=== PATIENT | female | born 1955 | race Hispanic/Latino ===

== ENCOUNTER 2017-09-10 09:16 | Inpatient (IN) | payer OTHER ==
[~2017-09-10] VITALS: Ht 149.9 cm; Wt 43.5 kg
[2017-09-10 09:55] LABS: BASOPHILS % (AUTO) 0.5 % (0.0-5.0); EOSINOPHILS % (AUTO) 1.3 % (0.0-8.0); HEMATOCRIT 39.2 % (36-48); LYMPHOCYTES % (AUTO) 8.1 % (21.0-51.0); MEAN CORPUSCULAR HEMOGLOBIN 28.9 pg (27.0-33.0); MEAN CORPUSCULAR HGB CONC 33.2 g/dL (32.0-36.0); MEAN CORPUSCULAR VOLUME 87.1 fL (79-99); MONOCYTES % (AUTO) 8.5 % (3.0-13.0); NEUTROPHILS % (AUTO) 81.6 % (40.0-77.0); PLATELET COUNT (AUTO) 350 K/uL (130-400); RED CELL DISTRIBUTION WIDTH 15.7 % (11.0-15.5); WHITE BLOOD COUNT (AUTO) 7.8 K/uL (4.8-10.8)
[2017-09-10 10:10] LABS: INR 0.96 (0.85-1.15); PARTIAL THROMBOPLASTIN TIME 27.1 SEC (26.3-35.5); PROTHROMBIN TIME 10.1 SEC (9.6-11.6)
[2017-09-10 10:11] LABS: AMYLASE 28 U/L (25-115); LIPASE 58 U/L (114-286)
[2017-09-10 10:21] LABS: ALANINE AMINOTRANSFERASE 16 U/L (12-78); ASPARTATE AMINOTRANSFERASE 25 U/L (10-37); BILIRUBIN,TOTAL 1.3 mg/dL (0.2-1.0); CARBON DIOXIDE 31 mmol/L (21-32); CHLORIDE 95 mmol/L (101-111); CREATINE KINASE MB < 0.5 ng/mL (0.5-3.6); CREATINE KINASE, TOTAL 38 U/L (21-232); CREATININE 0.6 mg/dL (0.5-1.5); GLOMERULAR FILTR. RATE CALC 108 mL/min (>60); GLUCOSE,RANDOM 89 mg/dL (70-105); MYOGLOBIN 39 ng/mL (10-92); SODIUM SERUM 138 mmol/L (136-145); TOTAL PROTEIN, SERUM 7.6 g/dL (6.0-8.3); TROPONIN I < 0.04 ng/mL (0.00-0.06); UREA NITROGEN, BLOOD 8 mg/dL (7-18)
[2017-09-10] MEDS ORDERED: POTASSIUM BICARB/CIT AC 25 MEQ TABLET.EFF ONE (10:50)
[2017-09-10 11:46] LABS: APPEARANCE,URINE Cloudy (CLEAR); BILIRUBIN,URINE Moderate (NEGATIVE); COLOR,URINE Dark Yellow (YELLOW); GLUCOSE, URINE (UA) Negative (NEGATIVE); KETONES,URINE >=80 mg/dL (NEGATIVE); LEUKOCYTE ESTERASE ,URINE Trace (NEGATIVE); NITRATE,URINE Negative (NEGATIVE); OCCULT BLOOD,URINE Negative (NEGATIVE); PROTEIN,URINE POS 1+ (NEGATIVE)
[2017-09-10 12:07] LABS: BACTERIA,URINE Moderate /HPF (None Seen)
[2017-09-10] MEDS ORDERED: IOPAMIDOL-370 100 ML VIAL IV ONE (12:07)
[2017-09-10 12:08] LABS: MUCUS,URINE Moderate LPF (None Seen); RBC,URINE 0-1 /HPF (0-1); SQUAMOUS EPITHELIAL CELL,UR 0-2 /LPF (0-2)
[2017-09-10 12:09] LABS: CALCIUM OXALATE CRYSTALS,UR Rare /LPF (None Seen)
[2017-09-10 18:00] VITALS: BP 155/66
[2017-09-10] MEDS ORDERED: HEPARIN SODIUM/PF 100UNIT/ML 5ML SYRINGE IV SCH (18:15)
[2017-09-10] MEDS ORDERED: SODIUM CHLORIDE 0.9% 10 ML VIAL IV PRN (18:15)
[2017-09-10] MEDS ORDERED: METOCLOPRAMIDE 10 MG/2 ML VIAL IVP PRN (18:15)
[2017-09-10] MEDS ORDERED: HYDROCODONE/ACETAMINOPHEN 5/325 MG TAB PO PRN (18:15)
[2017-09-10] MEDS ORDERED: ALBUTEROL SULFATE 0.042% 1.25 MG/3 ML INH IH PRN (18:15)
[2017-09-10] MEDS ORDERED: ONDANSETRON HCL 4 MG/2 ML VIAL IVP PRN (18:15)
[2017-09-10] MEDS ORDERED: SODIUM CHLORIDE 0.9% 1000ML 1,000 ML IV ONE (18:54)
[2017-09-10] MEDS ORDERED: HYDRALAZINE HCL 20 MG/ML VIAL IV PRN (19:30)
[2017-09-10 19:45] VITALS: BP 138/65
[2017-09-10] MEDS ORDERED: ONDA8TAB5 PO (20:37)
[2017-09-10] MEDS ORDERED: MEGE40 PO (20:37)
[2017-09-10] MEDS ORDERED: HYDR-4060 PO (20:37)
[2017-09-10] MEDS: MORPHINE SULFATE 2 MG/ML 1ML SYG IVP PRN (20:46)
[2017-09-11] VITALS (14 sets, daily range): BP systolic 121–149; BP diastolic 66–95
[2017-09-11] MEDS: MORPHINE SULFATE 2 MG/ML 1ML SYG IVP PRN ×4 (00:41→20:59)
[2017-09-11 06:13] LABS: BASOPHILS % (AUTO) 0.5 % (0.0-5.0); EOSINOPHILS % (AUTO) 1.3 % (0.0-8.0); HEMATOCRIT 35.1 % (36-48); LYMPHOCYTES % (AUTO) 7.9 % (21.0-51.0); MEAN CORPUSCULAR HEMOGLOBIN 29.8 pg (27.0-33.0); MEAN CORPUSCULAR HGB CONC 33.7 g/dL (32.0-36.0); MEAN CORPUSCULAR VOLUME 88.4 fL (79-99); MONOCYTES % (AUTO) 12.7 % (3.0-13.0); NEUTROPHILS % (AUTO) 77.6 % (40.0-77.0); PLATELET COUNT (AUTO) 309 K/uL (130-400); RED BLOOD CELL COUNT(AUTO) 3.97 MIL/uL (4.00-5.50); WHITE BLOOD COUNT (AUTO) 8.1 K/uL (4.8-10.8)
[2017-09-11 06:19] LABS: CREATININE 0.5 mg/dL (0.5-1.5); POTASSIUM 3.3 mmol/L (3.5-5.1)
[2017-09-11] MEDS: IPRATROPIUM 0.5 MG/2.5 ML INH IH PRN ×4 (07:15→23:08)
[2017-09-11] MEDS ORDERED: MEGESTROL 400 MG/10 ML UDCUP PO SCH (09:00)
[2017-09-11] MEDS ORDERED: HYDROCODONE/ACETAMINOPHEN 5/325 MG TAB PO PRN (09:15)
[2017-09-11] MEDS ORDERED: ONDANSETRON 4 MG TABLET PO PRN (09:15)
[2017-09-11 13:29] LABS: APPEARANCE BODY FLUID SLIGHTLY CLOUDY (CLEAR); COLOR,BODY FLUID LT YELLOW (LT YELLOW); SPECIMENTYPE,BODY FLUID THORACENTESIS; TOTAL VOLUME,BODY FLUID 1000 mL
[2017-09-11 13:30] LABS: BODY FLUID RBC 230 /cu. mm.; BODY FLUID WBC 355 /cu. mm.
[2017-09-11 14:38] LABS: BF LYMPHOCYTE 50 %; BF MESOTHELIAL 24 %
[2017-09-11] MEDS ORDERED: LIDOCAINE HCL-MPF 1% 2ML VIAL IVP PRN (18:00)
[2017-09-11] MEDS ORDERED: POTASSIUM CHLORIDE 10% ELIXIR 20 MEQ/15 ML UDCUP PO PRN (18:00)
[2017-09-11] MEDS ORDERED: POTASSIUM CHLORIDE 20 MEQ ERTAB PO PRN (18:00)
[2017-09-11] MEDS ORDERED: POTASSIUM CHLORIDE 20MEQ/100ML 100 ML IV PRN (18:00)
[2017-09-12] VITALS (12 sets, daily range): BP systolic 123–145; BP diastolic 80–101
[2017-09-12] MEDS: MORPHINE SULFATE 2 MG/ML 1ML SYG IVP PRN ×3 (04:14→19:08)
[2017-09-12] MEDS: IPRATROPIUM 0.5 MG/2.5 ML INH IH PRN ×4 (04:59→23:05)
[2017-09-12 05:38] LABS: BASOPHILS % (AUTO) 0.3 % (0.0-5.0); EOSINOPHILS % (AUTO) 1.6 % (0.0-8.0); HEMATOCRIT 33.8 % (36-48); LYMPHOCYTES % (AUTO) 6.1 % (21.0-51.0); MEAN CORPUSCULAR VOLUME 88.2 fL (79-99); PLATELET COUNT (AUTO) 261 K/uL (130-400); RED BLOOD CELL COUNT(AUTO) 3.83 MIL/uL (4.00-5.50); RED CELL DISTRIBUTION WIDTH 16.4 % (11.0-15.5); WHITE BLOOD COUNT (AUTO) 8.3 K/uL (4.8-10.8)
[2017-09-12 05:49] LABS: CREATININE 0.5 mg/dL (0.5-1.5); MAGNESIUM 1.7 mg/dL (1.80-2.40); POTASSIUM 3.8 mmol/L (3.5-5.1)
[2017-09-12] MEDS ORDERED: MEGESTROL 400 MG/10 ML UDCUP PO SCH (08:00)
[2017-09-12] MEDS: SODIUM CHLORIDE 0.9% 1000ML 1,000 ML IV SCH (10:15)
[2017-09-12] MEDS ORDERED: MAGNESIUM 2GM PREMIX 50ML 50 ML IV SCH (17:45)
[2017-09-13] MEDS: MORPHINE SULFATE 2 MG/ML 1ML SYG IVP PRN ×2 (02:20→08:52)
[2017-09-13 03:45] VITALS: BP 134/85
[2017-09-13] MEDS: SODIUM CHLORIDE 0.9% 1000ML 1,000 ML IV SCH (05:15)
[2017-09-13 05:52] LABS: BASOPHILS % (AUTO) 0.4 % (0.0-5.0); HEMATOCRIT 33.1 % (36-48); LYMPHOCYTES % (AUTO) 6.4 % (21.0-51.0); MEAN CORPUSCULAR HGB CONC 33.9 g/dL (32.0-36.0); MEAN CORPUSCULAR VOLUME 88.5 fL (79-99); MONOCYTES % (AUTO) 10.1 % (3.0-13.0); NEUTROPHILS % (AUTO) 81.1 % (40.0-77.0); NUCLEATED RED BLOOD CELLS 0.1 % (0.0-0.19); PLATELET COUNT (AUTO) 233 K/uL (130-400); RED BLOOD CELL COUNT(AUTO) 3.75 MIL/uL (4.00-5.50); RED CELL DISTRIBUTION WIDTH 16.1 % (11.0-15.5); WHITE BLOOD COUNT (AUTO) 8.7 K/uL (4.8-10.8)
[2017-09-13 06:03] LABS: CREATININE 0.5 mg/dL (0.5-1.5); POTASSIUM 3.8 mmol/L (3.5-5.1)
[2017-09-13 08:00] VITALS: BP 137/92
[2017-09-13 12:00] VITALS: BP 128/86
[2017-09-13] MEDS: FENTANYL 25 MCG/HR PATCH TD SCH (15:42)
[2017-09-13 16:00] VITALS: BP 114/78
[2017-09-13 19:00] VITALS: BP 128/87
[2017-09-13 23:59] VITALS: BP 114/78
[2017-09-14] MEDS: SODIUM CHLORIDE 0.9% 1000ML 1,000 ML IV SCH ×2 (02:15→03:05)
[2017-09-14] MEDS ORDERED: ZOLPIDEM TARTRATE 5 MG TAB PO ONE (02:45)
[2017-09-14] MEDS ORDERED: ZOLPIDEM TARTRATE 5 MG TAB ONE (03:02)
[2017-09-14 04:00] VITALS: BP 141/96
[2017-09-14 08:39] VITALS: BP 131/89
[2017-09-14] MEDS: MEGESTROL 400 MG/10 ML UDCUP PO SCH (09:30)
[2017-09-14] MEDS: LACTULOSE 20 GM/30 ML UDCUP PO PRN ×2 (09:41→21:06)
[2017-09-14 11:31] VITALS: BP 137/93
[2017-09-14 16:43] VITALS: BP 146/102
[2017-09-14 19:15] VITALS: BP 141/102
[2017-09-14 23:15] VITALS: BP 143/88
[2017-09-15] MEDS: ZOLPIDEM TARTRATE 5 MG TAB PO PRN ×2 (00:06→21:22)
[2017-09-15 03:16] VITALS: BP 143/93
[2017-09-15 08:05] VITALS: BP 122/81
[2017-09-15] MEDS: MEGESTROL 400 MG/10 ML UDCUP PO SCH (09:52)
[2017-09-15 11:29] VITALS: BP 121/88
[2017-09-15 16:44] VITALS: BP 124/86
[2017-09-15 20:16] VITALS: BP 138/83
[2017-09-16 00:03] VITALS: BP 146/72
[2017-09-16 03:53] VITALS: BP 131/87
[2017-09-16 07:29] VITALS: BP 122/83
[2017-09-16] MEDS: MEGESTROL 400 MG/10 ML UDCUP PO SCH (10:12)
[2017-09-16 11:56] VITALS: BP 120/81
[2017-09-16] MEDS: FENTANYL 25 MCG/HR PATCH TD SCH (14:11)
[2017-09-16 16:31] VITALS: BP 112/87
[2017-09-16] MEDS ORDERED: HEPARIN SODIUM/PF 100UNIT/ML 5ML SYRINGE IV SCH (18:54)
== END 2017-09-16 19:50 | disposition home or self-care (01) | DRG 133 ==
LOC: EDH 09:16 → EDHIP 14:20 → 4CH 17:20
PROVIDERS: ADMIT Family Medicine; ATTEND Family Medicine
PROC: 0W993ZZ Drainage of Right Pleural Cavity, Percutaneous Approach (ICD-10-PCS; principal; 2017-09-11)
DX: J96.01 Acute respiratory failure with hypoxia (principal); E43 Unspecified severe protein-calorie malnutrition; C78.00 Secondary malignant neoplasm of unspecified lung; R18.8 Other ascites; C78.7 Secondary malignant neoplasm of liver and intrahepatic bile duct; C25.9 Malignant neoplasm of pancreas, unspecified; R64 Cachexia; J90 Pleural effusion, not elsewhere classified; J93.9 Pneumothorax, unspecified; E87.6 Hypokalemia; D64.9 Anemia, unspecified; E11.9 Type 2 diabetes mellitus without complications; G89.3 Neoplasm related pain (acute) (chronic); I42.9 Cardiomyopathy, unspecified; R62.7 Adult failure to thrive; Z80.7 Family history of other malignant neoplasms of lymphoid, hematopoietic and related tissues; Z85.07 Personal history of malignant neoplasm of pancreas; Z90.710 Acquired absence of both cervix and uterus; Z99.81 Dependence on supplemental oxygen; Z68.29 Body mass index [BMI] 29.0-29.9, adult
CPT/HCPCS: 32555; 36415; 71010; 71275; 80048; 80053; 81001; 82150; 82550; 82553; 82948; 83605; 83615; 83690; 83735; 83874; 83880; 83986; 84157; 84484; 85025; 85378; 85610; 85730; 87040; 87071; 87088; 87101; 87116; 87205; 87206; 88108; 88305; 89051; 93005; 94640; 94664; 94760; 99291; J1642; J2405; J3475; J7030; Q9967